=== PATIENT | female | born 2000 ===

== ENCOUNTER 2021-10-22 15:37 | Inpatient (IN) | payer MEDICAID, OTHER ==
[~2021-10-22 15:37] MED LIST: Bupivacaine 0.25% HCL 30 ML VIAL ONE; ePHEDrine Sulfate 50 MG/10 ML VIAL ONE
[2021-10-22] MEDS ORDERED: Ibuprofen 800 MG TAB PO PRN (16:49)
[2021-10-22] MEDS ORDERED: Butorphanol Tartrate 1 MG/ML VIAL SLOW IVP PRN (16:49)
[2021-10-22] MEDS ORDERED: Lidocaine 1% (PF) 30 ML VIAL SC PRN (16:49)
[2021-10-22] MEDS ORDERED: Misoprostol 200 MCG TAB PR PRN (16:49)
[2021-10-22] MEDS ORDERED: Acetaminophen 500 MG TAB PO PRN (16:49)
[2021-10-22] MEDS ORDERED: hydrALAZINE 20 MG/ML VIAL SLOW IVP PRN (16:49)
[2021-10-22] MEDS ORDERED: Promethazine HCl 25 MG/ML VIAL IM PRN (16:49)
[2021-10-22] MEDS ORDERED: Ondansetron PF 4 MG/2 ML Vial IVP PRN (16:49)
[2021-10-22] MEDS ORDERED: NS w/ Oxytocin 30 units 500 ML IV SCH (17:00)
[2021-10-22] MEDS ORDERED: Lactated Ringer's 1,000 ML IV SCH (17:00)
[2021-10-22] MEDS ORDERED: NS w/ Oxytocin 30 units 500 ML IVPB SCH (17:00)
[2021-10-22] MEDS ORDERED: Misoprostol 100 MCG TAB VAG SCH (17:00)
[2021-10-22 17:15] LABS: Hemoglobin 11.3 g/dL (12.0-15.5); Mean Corpuscular Hemoglobin 26.1 pg (27.0-33.0); Mean Corpuscular Volume 84.1 fl (81.6-98.3); Mean Platelet Volume 11.5 fl (7.4-10.4); Platelet Count 197 10x3/uL (150-450); RBC Distribution Width 13.5 % (11.5-14.5); Red Blood Cell (RBC) Count 4.33 10x6/uL (3.90-5.03); White Blood Cell (WBC) Count 7.1 10x3/uL (3.5-10.5)
[2021-10-22 17:28] VITALS: BMI 29.1
[2021-10-22 17:47] LABS: Hep B Surf Ag Non-Reactive S/CO (NonReactive); Syphilis Antibody Nonreactive (Nonreactive); Syphilis Antibody Index 0.05 S/CO (<1.00 Non-Reactive)
[2021-10-22 17:54] LABS: HBSAg Index 0.19 S/CO (0-0.99)
[2021-10-23] MEDS ORDERED: Fentanyl 2 mcg/Bup 0.1% Cadd 100 ML ONE (07:34)
[2021-10-23 07:54] LABS: SARS-CoV-2 NAA Rapid Test Not Detected (NotDetected)
[2021-10-23] MEDS ORDERED: Lactated Ringer's 500 ML IV PRN (08:37)
[2021-10-23] MEDS ORDERED: Promethazine HCl 25 MG/ML VIAL IM PRN (08:37)
[2021-10-23] MEDS ORDERED: Naloxone HCl 0.4 mg/ml Vial IVP PRN ×2 (08:37)
[2021-10-23] MEDS ORDERED: Hydrocerin (Eucerin) Cream 120 gm Jar TOP PRN (08:37)
[2021-10-23] MEDS ORDERED: Ondansetron PF 4 MG/2 ML Vial IVP PRN ×2 (08:37→23:40)
[2021-10-23] MEDS ORDERED: Acetaminophen 325 MG TAB PO PRN (08:37)
[2021-10-23] MEDS ORDERED: ePHEDrine Sulfate 50 MG/10 ML VIAL SLOW IVP PRN (08:37)
[2021-10-23] MEDS ORDERED: diphenhydrAMINE 50 MG/ML VIAL IVP PRN (08:37)
[2021-10-23] MEDS ORDERED: Communication Order-Pharmacy FS SCH (08:45)
[2021-10-23] MEDS ORDERED: Fentanyl 2 mcg/Bupivacaine 0.1% Cassette 100 ML EPIDURAL SCH (08:45)
[2021-10-23] MEDS ORDERED: Lactated Ringer's 500 ML IV SCH (10:00)
[2021-10-23] MEDS ORDERED: Dextrose 5%-Lactated Ringers 1,000 ML IV SCH (10:00)
[2021-10-23 10:40] LABS: Amphetamine Not Detected (NotDetected); Barbiturates Screen Not Detected (NotDetected); Benzodiazepine Screen Not Detected (NotDetected); Cocaine Metabolite Screen Not Detected (NotDetected); Methadone Not Detected (NotDetected); Methamphetamine Not Detected (NotDetected); Opiate Screen Not Detected (NotDetected); Oxycodone Screen Not Detected (NotDetected); Phencyclidine (PCP) Not Detected (NotDetected); THC/Cannabinoid Screen Not Detected (NotDetected); Tricyclic Screen Not Detected (NotDetected)
[2021-10-23] MEDS ORDERED: Misoprostol 200 MCG TAB ONE (20:16)
[2021-10-23] MEDS ORDERED: Misoprostol 200 MCG TAB VAG PRN (23:40)
[2021-10-23] MEDS ORDERED: Milk Of Magnesia 30 ML UDCUP PO PRN (23:40)
[2021-10-23] MEDS ORDERED: diphenhydrAMINE 25 MG CAP PO PRN (23:40)
[2021-10-23] MEDS ORDERED: Bisacodyl 10 MG SUPP PR PRN (23:40)
[2021-10-23] MEDS ORDERED: Boostrix 0.5 ML (Tdap) VIAL IM ONE (23:40)
[2021-10-23] MEDS ORDERED: Methylergonovine 0.2 MG/ML VIAL IM PRN (23:40)
[2021-10-23] MEDS ORDERED: Preparation H Ointment 28 GM TUBE PR PRN (23:40)
[2021-10-23] MEDS ORDERED: NS w/ Oxytocin 30 units 500 ML IV SCH (23:40)
[2021-10-23] MEDS ORDERED: hydrALAZINE 20 MG/ML VIAL SLOW IVP PRN (23:40)
[2021-10-23] MEDS ORDERED: Benzocaine-Menthol 82.5 ML CAN TOP PRN (23:40)
[2021-10-23] MEDS ORDERED: Lanolin Ointment 7 GM TUBE TOP PRN (23:40)
[2021-10-24] MEDS: Docusate Calcium (SURFAK) 240 MG CAP PO SCH ×3 (01:55→21:32)
[2021-10-24] MEDS: Ibuprofen 800 MG TAB PO SCH ×4 (01:55→21:32)
[2021-10-24] MEDS: Ferrous Sulfate 325 MG TAB PO SCH ×2 (07:26→16:03)
[2021-10-24] MEDS: Prenatal Vitamin 1 TAB PO SCH (07:42)
[2021-10-25] MEDS: Ibuprofen 800 MG TAB PO SCH ×2 (06:01→13:50)
[2021-10-25] MEDS: Ferrous Sulfate 325 MG TAB PO SCH (07:35)
[2021-10-25 07:51] VITALS: BP 103/63; TEMP 98.2
[2021-10-25] MEDS: Prenatal Vitamin 1 TAB PO SCH (08:56)
[2021-10-25] MEDS: Docusate Calcium (SURFAK) 240 MG CAP PO SCH (08:56)
== END 2021-10-25 14:07 | disposition home or self-care (01) | DRG 806 ==
LOC: CSHLD 15:37 → CSHPP 10-23 23:30
PROVIDERS: ADMIT Student in an Organized Health Care Education/Training Program; ATTEND Student in an Organized Health Care Education/Training Program
PROC: 10E0XZZ Delivery of Products of Conception, External Approach (ICD-10-PCS; principal; 2021-10-24)
PROC: 0KQM0ZZ Repair Perineum Muscle, Open Approach (ICD-10-PCS; 2021-10-24)
PROC: 10907ZC Drainage of Amniotic Fluid, Therapeutic from Products of Conception, Via Natural or Artificial Opening (ICD-10-PCS; 2021-10-24)
PROC: 3E0P7VZ Introduction of Hormone into Female Reproductive, Via Natural or Artificial Opening (ICD-10-PCS; 2021-10-24)
PROC: 3E033VJ Introduction of Other Hormone into Peripheral Vein, Percutaneous Approach (ICD-10-PCS; 2021-10-24)
PROC: 10H07YZ Insertion of Other Device into Products of Conception, Via Natural or Artificial Opening (ICD-10-PCS; 2021-10-24)
DX: O48.0 Post-term pregnancy (principal); D62 Acute posthemorrhagic anemia; Z37.0 Single live birth; Z3A.40 40 weeks gestation of pregnancy; O76 Abnormality in fetal heart rate and rhythm complicating labor and delivery; O90.81 Anemia of the puerperium; O70.1 Second degree perineal laceration during delivery; Z20.822 Contact with and (suspected) exposure to COVID-19
CPT/HCPCS: 36415; 51702; 80306; 85027; 86780; 86850; 86900; 86901; 87340; J2405; J2590; S0020; U0002